=== PATIENT | male | born 1955 | race Caucasian/White ===

== ENCOUNTER → 2017-03-26 | Outpatient (CLI) | payer OTHER ==
[~2017-03-26] MED LIST: AMARYL1 MG PO; AVODART0.5 MG PO; BAYER W-CALCIU1 EACH PO; CALCIUM + D 601 EACH PO; FOSAMAX70 MG PO; GLUCOPHAGE XR1000 MG PO; OMEPRAZOLE40 MG PO; PRINIVIL20 MG PO; SERTRALINE HCL100 MG PO; SIMVASTATIN40 MG PO
== END | disposition home or self-care (01) ==
LOC: NUC 06:28
DX: R10.11 Right upper quadrant pain (principal)
CPT/HCPCS: 78226; A9510